=== PATIENT | female | born 1980 | race Caucasian/White ===

== ENCOUNTER 2017-07-10 13:49 | Emergency (ER) | payer MEDICAID ==
[2017-07-10] MEDS ORDERED: NS 1,000 ML IV ONE (14:41)
--- NOTE | 2017-07-10 14:41 | EDPHY ---
H & P Stated Complaint: hx migraines/can't take reg meds r/t 2 months Time Seen by Provider: 07/10/17 14:40 HPI/ROS: HPI: This is a 37-year-old female who presents with Chief Complaint: hx migraines/can't take reg meds r/t 2 months Location: Left eye Quality: Headache Duration: 2 days Signs and Symptoms: no fever, + nausea, no vomiting, + photophobia, + noise sensitivity, no neck stiffness, no ear pain, no tinnitus, no nasal congestion, no sinus pressure, no weakness, no radiation, no vaginal bleeding or discharge, no abdominal pain, no neck stiffness, no aura Timing: Acute, waxes and wane Severity: Moderate Context: Patient is currently 2 months and on Saturday had ultrasound with her OBGYN that was normal per patient. Presents with complaints of migraine headache primarily behind her left eye, nonradiating in nature, moderate intensity that started yesterday. She took Tylenol p.m. yesterday evening and she was able to sleep for couple hours but woke up with headache again. She has had take Imitrex in the past for her migraines but does not want to use due to her . She has had a poor appetite today. Denies any vaginal bleeding/discharge or abdominal pain. She reports that she is drinking plenty of fluids and does not believe that she is dehydrated. Diagnosed with migraines at age 13. Patient reports that her symptoms are typical of her other migraine. Modifying Factors: Tylenol p.m. with transient relief Comment: ROS: see HPI Constitutional: No fever, no chills, no weight loss Eyes: No blurred vision Respiratory: No shortness of breath, no cough Cardiovascular: No chest pain, no palpitations Gastrointestinal: No nausea, no vomiting, no diarrhea, no hematemesis, no blood in stool Genitourinary: No dysuria, no blood in urine Extremities: No myalgias, no edema Neurologic: No weakness, no numbness Skin: No rashes, no petechiae Hematologic: No bruising, no bleeding MEDICAL/SURGICAL/SOCIAL HISTORY: Medical history: Migraine headache. Does not take any regular medications. Surgical history: Denies Social history: Employed. CONSTITUTIONAL: Extremely well-appearing adult white female, awake and alert, no obvious distress HEENT: Atraumatic and normocephalic, PERRL, EOMI. Tympanic membranes clear. Oropharynx clear, no exudate and moist pink mucosa. Airway patent. No lymphadenopathy. No meningismus. Cardiovascular: Normal S1/S2, regular rate, regular rhythm, without murmur rub or gallop. PULMONARY/CHEST: Symmetrical and nontender. Clear to auscultation bilaterally. Good air movement. No accessory muscle usage. ABDOMEN: Soft, nondistended, nontender, no rebound, no guarding, no peritoneal signs, no masses or organomegaly. No CVAT. EXTREMITIES: 2/2 pulses, strength 5/5, no deformities, no clubbing, no cyanosis or edema. NEUROLOGICAL: no focal neuro deficits. GCS 15. Cranial nerves 2-12 grossly intact. Speech clear. SKIN: Warm and dry, no erythema. no rash. Good capillary refill. Source: Patient Exam Limitations: No limitations - Personal History LMP (Females 10-55): Current Tetanus/Diphtheria Vaccine: Yes - Medical/Surgical History Hx Asthma: No Hx Chronic Respiratory Disease: No Hx Diabetes: No Hx Cardiac Disease: No Hx Renal Disease: No Hx Cirrhosis: No Hx Alcoholism: No Hx HIV/AIDS: No Hx Splenectomy or Spleen Trauma: No Other PMH: migraines - Social History Smoking Status: Never smoked Constitutional: Initial Vital Signs Temperature (C) 36.8 C 07/10/17 14:12 Heart Rate 78 07/10/17 14:12 Respiratory Rate 16 07/10/17 14:12 Blood Pressure 124/77 H 07/10/17 14:12 O2 Sat (%) 96 07/10/17 14:12 O2 Delivery Mode Room Air O2 (L/minute) 2 Allergies/Adverse Reactions: No Known Allergies Allergy (Unverified 07/10/17 14:11) Home Medications: Medication Instructions Recorded Metoclopramide [Reglan 5 mg (*)] 5 mg PO Q6 PRN #12 tab 07/10/17 diphenhydrAMINE [Benadryl 25 MG 25 mg PO Q6 PRN #12 tab 07/10/17 (*)] Medical Decision Making ED Course/Re-evaluation: Patient given 1 L normal saline, placed on oxygen 2 L nasal cannula, p.o. Tylenol a 1000 mg, IV Reglan, IV Benadryl No neurological deficits No signs of otitis media/sinusitis/meningitis/hyperemesis gravidarum/miscarriage Reassessed patient: She reports moderate relief of symptoms. Asking to be disconnected from IV fluids in order to urinate. This patient was seen under the supervision of my primary supervising physician. I evaluated care for this patient independently. Differential Diagnosis: Headache including but not limited to subarachnoid hemorrhage, migraine headache , tension headache and infectious causes such as meningitis, pharyngitis and sinusitis. - Data Points Medications Given: Discontinued Medications Acetaminophen (Tylenol) 1,000 mg PO EDNOW ONE Stop: 07/10/17 14:43 Last Admin: 07/10/17 15:29 Dose: 1,000 mg Diphenhydramine HCl (Benadryl Injection) 25 mg IVP EDNOW ONE Stop: 07/10/17 14:44 Last Admin: 07/10/17 15:16 Dose: 25 mg Sodium Chloride (Ns) 1,000 mls @ 0 mls/hr IV EDNOW ONE; Wide Open PRN Reason: Protocol Stop: 07/10/17 14:42 Last Admin: 07/10/17 15:15 Dose: 1,000 mls Metoclopramide HCl (Reglan Injection) 10 mg IVP EDNOW ONE Stop: 07/10/17 14:43 Last Admin: 07/10/17 15:16 Dose: 10 mg Departure - Departure Disposition: Home, Routine, Self-Care Clinical Impression: First trimester Migraine Qualifiers: Migraine type: without aura Status migrainosus presence: without status migrainosus Intractability: not intractable Qualified Code(s): G43.009 - Migraine without aura, not intractable, without status migrainosus Condition: Good Instructions: (ED), Migraine Headache (ED) Additional Instructions: Consume a minimum of 8-10 glasses of water or electrolyte fluid replacement drinks that include Gatorade, Powerade, Pedialyte. Eat a bland diet for the next 48 hours and then slowly advance as tolerated. Take Reglan and Benadryl as needed for migraine headache that is not resolved with a 1000 mg of Tylenol. Follow-up with PCP/OBGYN regarding migraine headaches. Referrals: PCP Not In,Dictionary [Medical Doctor] - As per Instructions Prescriptions: diphenhydrAMINE [Benadryl 25 MG (*)] 25 mg PO Q6 PRN #12 tab PRN Reason: Nausea/Vomiting, Use 1st Metoclopramide [Reglan 5 mg (*)] 5 mg PO Q6 PRN #12 tab PRN Reason: Headache
[2017-07-10] MEDS ORDERED: ACETAMINOPHEN 500 MG TAB PO ONE (14:42)
[2017-07-10] MEDS ORDERED: METOCLOPRAMIDE 10 MG/2 ML VIAL IVP ONE (14:42)
[2017-07-10 17:24] VITALS: RESP 18
[2017-07-10 17:40] VITALS: BP 117/92; PULSE 90; TEMP 98.1; O2SAT 96
== END 2017-07-10 17:42 | disposition home or self-care (01) ==
PROC: 3E0337Z Introduction of Electrolytic and Water Balance Substance into Peripheral Vein, Percutaneous Approach (ICD-10-PCS; principal; 2017-07-10)
DX: O99.351 Diseases of the nervous system complicating pregnancy, first trimester (principal); G43.009 Migraine without aura, not intractable, without status migrainosus; E86.9 Volume depletion, unspecified; Z3A.01 Less than 8 weeks gestation of pregnancy
CPT/HCPCS: 96374; J1200; J2765

== ENCOUNTER 2017-07-30 16:39 | Emergency (ER) | payer MEDICAID ==
[2017-07-30 16:48] VITALS: TEMP 98.2
[2017-07-30 18:30] VITALS: RESP 18; O2SAT 96
--- NOTE | 2017-07-30 18:33 | EDPHY ---
H & P Time Seen by Provider: 07/30/17 18:20 HPI/ROS: Chief complaint. Fall, HPI. 29-year-old female presents emergency department after slipping on the snow this morning at about 9:30 a.m.. She slipped and landed on her bottom. She is 10 weeks . She has some discomfort in her back but no radiation to her legs or bowel or bladder symptoms. No leg weakness. She now then has low abdominal cramping that began this afternoon. No vaginal bleeding. Did not strike her head or lose consciousness. No neck pain. He ROS Constitutional. no fever/chills, no weakness Eyes. no problems with vision ENT. no sore throat, no nasal drainage Cardiovascular. no chest pain Respiratory. no shortness of breath, no cough Abdominal. Low abdominal cramping . no problems urinating MS. Mid back pain Skin. no rash Lymph. no swollen glands Neuro. no headache, no dizziness, no difficulty walking or with speech Past Medical/Surgical History: Migraines Social History: Single, nonsmoker, no alcohol Smoking Status: Never smoked Physical Exam: General Appearance: Alert well-developed female mild distress vital signs show initial heart rate 135 and blood pressure 133/110 Eyes: Pupils equal and round no pallor or injection. ENT, Mouth: Mucous membranes are moist. Respiratory: There are no retractions, lungs are clear to auscultation. Cardiovascular: Regular rate and rhythm. Gastrointestinal: Abdomen is soft and mildly tender in the suprapubic area., no masses, bowel sounds normal. Neurological: Awake and alert, sensory and motor exams grossly normal. Skin: Warm and dry, no rashes. Musculoskeletal: Neck is supple nontender. Tenderness in the lower thoracic area without evidence of surface trauma Extremities symmetrical, full range of motion. Psychiatric: Patient is oriented X 3, there is no agitation. Constitutional: Initial Vital Signs Temperature (C) 36.8 C 07/30/17 16:46 Heart Rate 135 H 07/30/17 16:46 Respiratory Rate 24 H 07/30/17 16:46 Blood Pressure 133/110 H 07/30/17 16:46 O2 Sat (%) 98 07/30/17 16:46 O2 Delivery Mode Room Air Allergies/Adverse Reactions: No Known Allergies Allergy (Unverified 07/30/17 16:45) Home Medications: Medication Instructions Recorded Hydroxyzine HCl 07/30/17 Imitrex 07/30/17 Medical Decision Making - Diagnostics Imaging Results: Imaging Impressions Obstetrics Ultrasound 07/30/17 18:43 Impression: 1. Viable intrauterine . Estimated sonographic gestational age: 9 weeks 5 days. 2. Small perigestational hemorrhage. Consider short-term ultrasound follow-up if of clinical concern. Dr. Thomson discussed these findings by telephone with MARY Pineda JEFFRY on 2017 at 1959 hours. Pelvic ultrasound shows a viable IUP. 9 weeks 5 days. Small subchorionic hemorrhage. Procedures: Tylenol in the ED ED Course/Re-evaluation: I consulted and discussed the care with Dr. Jerry. She recommended follow up and that we check a type and Rh and give RhoGAM if the patient is Rh negative. I discussed this with the patient including treatment plan and criteria for return and importance of follow-up and further evaluation. She expresses understanding and agreement Differential Diagnosis: I have considered spine fracture however it is a relatively minor fall and I do not want to radiate patient's low back. She is neurologically intact. She also has abdominal pelvic cramping but no vaginal bleeding. There is mild and slight subchorionic hemorrhage. - Data Points Laboratory Results: 07/30/17 19:00 Urine Color YELLOW Urine Appearance HAZY Urine pH 6.0 (5.0-7.5) Ur Specific [place] 1.011 (1.002-1.030) Urine Protein NEGATIVE (NEGATIVE) Urine Ketones NEGATIVE (NEGATIVE) Urine Blood NEGATIVE (NEGATIVE) Urine Nitrate NEGATIVE (NEGATIVE) Urine Bilirubin NEGATIVE (NEGATIVE) Urine Urobilinogen NEGATIVE EU EU (0.2-1.0) Ur Leukocyte Esterase 3+ H (NEGATIVE) Urine RBC 3-5 /hpf H /hpf (0-3) Urine WBC 10-15 /hpf H /hpf (0-3) Ur Epithelial Cells TRACE /lpf /lpf (NONE-1+) Urine Bacteria 1+ /hpf H /hpf (NONE SEEN) Urine Mucus TRACE /lpf /lpf (NONE-1+) Urine Glucose NEGATIVE (NEGATIVE) Medications Given: Discontinued Medications Acetaminophen (Tylenol) 1,000 mg PO EDNOW ONE Stop: 07/30/17 18:44 Last Admin: 07/30/17 18:50 Dose: 1,000 mg Departure - Departure Disposition: Home, Routine, Self-Care Clinical Impression: Back pain Qualifiers: Back pain location: low back pain Chronicity: acute Back pain laterality: midline Sciatica presence: without sciatica Qualified Code(s): M54.5 - Low back pain Subchorionic hemorrhage in first trimester Qualifiers: Fetus number: single or unspecified fetus Qualified Code(s): O41.8X10 - Other specified disorders of amniotic fluid and membranes, first trimester, not applicable or unspecified Condition: Good Instructions: Back Pain (ED) Additional Instructions: Ice to sore area of back next 24-48 hours. Tylenol 650 mg every 6 hr for discomfort. Activity as tolerated. Return for worsening abdominal pain or vaginal bleeding. Recheck by your regular physician in the next 2 days. Easy activity tomorrow. I will give you a note For the day Off. Call us back to find out your blood type and Rh. If you are Rh negative you need to return for RhoGAM treatment. [phone] Referrals: NONE *PRIMARY CARE P,. [Primary Care Provider] - As per Instructions [facility] [Outside] - 1-2 days without fail Stand Alone Forms: Work Excuse
[2017-07-30] MEDS ORDERED: ACETAMINOPHEN 500 MG TAB PO ONE (18:43)
[2017-07-30 22:06] VITALS: BP 148/95; PULSE 102
== END 2017-07-30 22:06 | disposition home or self-care (01) ==
DX: O9A.211 Injury, poisoning and certain other consequences of external causes complicating pregnancy, first trimester (principal); S39.92XA Unspecified injury of lower back, initial encounter; O36.8990 Maternal care for other specified fetal problems, unspecified trimester, not applicable or unspecified; Z3A.10 10 weeks gestation of pregnancy; W00.0XXA Fall on same level due to ice and snow, initial encounter

== ENCOUNTER → 2017-08-19 | Outpatient (CLI) | payer MEDICAID | LOC: FIMAGING 09:19 | PROVIDERS: ATTEND Family Medicine | DX: O09.521 Supervision of elderly multigravida, first trimester (principal); O09.71 Supervision of high risk pregnancy due to social problems, first trimester; Z3A.12 12 weeks gestation of pregnancy ==

== ENCOUNTER 2017-09-17 19:19 | Emergency (ER) | payer MEDICAID ==
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
[2017-09-17 22:20] VITALS: BP 124/96
== END 2017-09-17 22:20 | disposition home or self-care (01) ==
DX: O00.01 Abdominal pregnancy with intrauterine pregnancy (principal); F17.200 Nicotine dependence, unspecified, uncomplicated; Z3A.17 17 weeks gestation of pregnancy

== ENCOUNTER → 2017-10-07 | Outpatient (CLI) | payer MEDICAID | LOC: FIMAGING 12:06 | PROVIDERS: ATTEND Family Medicine | DX: O09.522 Supervision of elderly multigravida, second trimester (principal); F41.1 Generalized anxiety disorder; R03.0 Elevated blood-pressure reading, without diagnosis of hypertension; Z3A.19 19 weeks gestation of pregnancy; Z82.79 Family history of other congenital malformations, deformations and chromosomal abnormalities ==

== ENCOUNTER 2017-10-16 20:54 | Observation (INO) | payer MEDICAID ==
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
[2017-10-16 22:15] VITALS: BP 121/80
[2017-10-16] MEDS ORDERED: TERBUTALINE SULFATE 1 MG/ML VIAL SC PRN (22:34)
[2017-10-16] MEDS ORDERED: LR 500 ML IV ONE (23:00)
[2017-10-16] MEDS ORDERED: ACETAMINOPHEN 500 MG TAB PO ONE (23:00)
[2017-10-16] MEDS ORDERED: CALCIUM CARBONATE 500 MG CHEWABLE TAB PO PRN (23:05)
== END 2017-10-17 00:45 | disposition home or self-care (01) ==
LOC: FLD 22:17
PROVIDERS: ADMIT Obstetrics & Gynecology; ATTEND Obstetrics & Gynecology
DX: O99.89 Other specified diseases and conditions complicating pregnancy, childbirth and the puerperium (principal); M54.5 Low back pain
CPT/HCPCS: G0378

== ENCOUNTER → 2017-11-05 | Outpatient (CLI) | payer MEDICAID | LOC: FIMAGING 14:20 | PROVIDERS: ATTEND Family Medicine | DX: O09.522 Supervision of elderly multigravida, second trimester (principal); O99.342 Other mental disorders complicating pregnancy, second trimester; R03.0 Elevated blood-pressure reading, without diagnosis of hypertension; F43.10 Post-traumatic stress disorder, unspecified; Z3A.23 23 weeks gestation of pregnancy; Z82.79 Family history of other congenital malformations, deformations and chromosomal abnormalities ==

== ENCOUNTER 2017-11-15 19:36 | Observation (INO) | payer MEDICAID ==
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
== END 2017-11-15 22:37 | disposition home or self-care (01) ==
LOC: FLD 19:36
PROVIDERS: ADMIT Obstetrics & Gynecology; ATTEND Obstetrics & Gynecology
DX: O99.89 Other specified diseases and conditions complicating pregnancy, childbirth and the puerperium (principal); O09.522 Supervision of elderly multigravida, second trimester; Z3A.25 25 weeks gestation of pregnancy
CPT/HCPCS: G0378

== ENCOUNTER → 2017-12-02 | Outpatient (CLI) | payer MEDICAID | LOC: FIMAGING 12:46 | PROVIDERS: ATTEND Family Medicine | DX: O09.522 Supervision of elderly multigravida, second trimester (principal); O10.012 Pre-existing essential hypertension complicating pregnancy, second trimester; Z3A.27 27 weeks gestation of pregnancy; Z82.79 Family history of other congenital malformations, deformations and chromosomal abnormalities ==

== ENCOUNTER 2017-12-09 13:11 | Observation (INO) | payer MEDICAID ==
[2017-12-09 13:48] LABS: PLATELET COUNT 217 10^3/uL (150-400)
[2017-12-09] MEDS ORDERED: HYDROCODONE/APAP 5/325 TAB PO PRN (15:32)
--- NOTE | 2017-12-09 17:28 | OBPROG ---
Labor Progress Note Assessment/Plan: Assessment: IUP at 28+ wks back pain - improved after eating and 2 Yellow Jacket migraine - improved after eating and 2 Yellow Jacket Plan: Encourage increased fluids for third trimester. Cont to f/u with appts with Norma PT for migraine mgmt, and with neurology. Appt with Dr Dillard next week. D/C home 12/09/17 17:16 Subjective/Intrapartum Course: 12/09/17 17:18 -- OUTPATIENT VISIT Pt had acute onset of mid back pain after getting onto bus this afternoon intense enough that she had trouble taking normal breaths. Also felt migraine about to start which was worsening here on Labor and Delivery. Pt denied ctxns , bleeding or LOF. reports GFM. Has been urinating fine. Denies nausea and slick reg diet here today. Pt had full evaluation here on LnD and rec'd IV fluids and 2 Yellow Jacket and has had significant reduction in back pain and no further migraine. Initial B/P was 140s/90s in pain but then 120s/70s Labs normal and no sign of preeclampsia.... (has been told she might have B/P issues). Urine negative. Monitoring reassuring for heart tones and no signs of labor. Objective: 12/09/17 13:00 12/09/17 13:00 Uric Acid 3.5 mg/dL (2.5-6.8) 12/09/17 13:00 Total Bilirubin 0.4 mg/dL (0.1-1.4) 12/09/17 13:00 Conjugated Bilirubin 0.3 mg/dL (0.0-0.5) 12/09/17 13:00 Unconjugated Bilirubin 0.1 mg/dL (0.0-1.1) 12/09/17 13:00 AST 17 IU/L (14-46) 12/09/17 13:00 ALT 27 IU/L (9-52) 12/09/17 13:00 Lactate Dehydrogenase 447 IU/L (313-618) 12/09/17 13:00 - Contraction Pattern Assessment Current Contraction Pattern: Other (Specify) (none) - FHR Assessment Malloy FHR (bpm): 130 FHR Pattern Variability: Moderate (10x10 elevations in FHR, reassuring) Oxytocin Orders Assessment - Pre-Induction/Augmentation Assessment Gestational Age: 28 week(s) and 3 day(s) ICD10 Worksheet Patient Problems: Problems Problem Status Onset Migraine Acute Back pain Acute Acute
== END 2017-12-09 18:00 | disposition home or self-care (01) ==
LOC: FLD 13:11
PROVIDERS: ADMIT Obstetrics & Gynecology; ATTEND Obstetrics & Gynecology
DX: M54.9 Dorsalgia, unspecified (principal); R06.02 Shortness of breath; G43.909 Migraine, unspecified, not intractable, without status migrainosus; Z3A.28 28 weeks gestation of pregnancy
CPT/HCPCS: 59025; G0378

== ENCOUNTER 2018-01-11 04:15 | Observation (INO) | payer MEDICAID | END 2018-01-11 05:45 | disposition home or self-care (01) | LOC: FLD 04:15 | PROVIDERS: ADMIT Obstetrics & Gynecology; ATTEND Obstetrics & Gynecology | DX: O09.523 Supervision of elderly multigravida, third trimester (principal); Z3A.33 33 weeks gestation of pregnancy ==

== ENCOUNTER 2018-02-09 20:49 | Observation (INO) | payer MEDICAID ==
--- NOTE | 2018-02-09 23:29 | GPROG ---
DATE OF SERVICE: 02/09/2018 The patient is a 38-year-old, 4, para 3-0-0-3, who is at 37 and 2/7 weeks' gestation, who has complained of having contractions 8-10 minutes apart, which are occasionally uncomfortable. She andre d that she is receiving care at [facility] and she said she was told to come in when sh e was having contractions 8 minutes apart. She has been seen several times in this . Her c ervix has unchanged since last visit. She is 2 cm dilated, 50% effaced, and -2 station. statu s was reassuring with a reactive nonstress test with positive accelerations and no decelerations and category 1 tracing. The patient was discharged to home with labor precautions and kick counts. /[id number]/MODL
== END 2018-02-09 22:52 | disposition home or self-care (01) ==
LOC: FLD 20:49
PROVIDERS: ADMIT Obstetrics & Gynecology; ATTEND Obstetrics & Gynecology
DX: O47.1 False labor at or after 37 completed weeks of gestation (principal)
CPT/HCPCS: 59025; G0378

== ENCOUNTER 2018-02-19 19:49 | Emergency (ER) | payer MEDICAID ==
--- NOTE | 2018-02-19 21:38 | EDPHY ---
H & P Stated Complaint: HIGH BP, CASTRO, ANKLE SWELLING Time Seen by Provider: 02/19/18 21:30 HPI/ROS: CHIEF COMPLAINT: Hypertension, swollen legs HISTORY OF PRESENT ILLNESS: The patient is a 38-year-old female who delivered a baby 2 days ago. She has had elevated blood pressure and swollen ankles ever since. She has been trying to keep her legs elevated. No abdominal pain. No headache. No nausea vomiting. Is a normal healthy vaginal delivery, not premature. Severity: Mild Modifying factors: None REVIEW OF SYSTEMS: Constitutional: denies: chills, fever, recent illness, recent injury EENTM: denies: blurred vision, double vision, nose congestion Respiratory: denies: cough, shortness of breath Cardiac: denies: chest pain, irregular heart rate, lightheadedness, palpitations Gastrointestinal/Abdominal: denies: abdominal pain, diarrhea, nausea, vomiting, blood streaked stools Genitourinary: denies: dysuria, frequency, hematuria, pain Musculoskeletal: denies: joint pain, muscle pain Skin: denies: lesions, rash, jaundice, bruising Neurological: Occasional headaches but not now denies: numbness, paresthesia, tingling, dizziness, weakness Hematologic/Lymphatic: denies: blood clots, easy bleeding, easy bruising Immunologic/allergic: denies: HIV/AIDS, transplant 10 systems reviewed and negative except as noted EXAM: GENERAL: Well-appearing, well-nourished and in no acute distress. HEAD: Atraumatic, normocephalic. EYES: Pupils equal round and reactive to light, extraocular movements intact, sclera anicteric, conjunctiva are normal. ENT: TMs normal, nares patent, oropharynx clear without exudates. Moist mucous membranes. NECK: Normal range of motion, supple without lymphadenopathy or JVD. LUNGS: Breath sounds clear to auscultation bilaterally and equal. No wheezes rales or rhonchi. HEART: Regular rate and rhythm without murmurs, rubs or gallops. ABDOMEN: Soft, nontender, normoactive bowel sounds. No guarding, no rebound. No masses appreciated. BACK: No CVA tenderness, no spinal tenderness, step-offs or deformities EXTREMITIES: Normal range of motion, no pitting or edema. No clubbing or cyanosis. NEUROLOGICAL: Cranial nerves II through XII grossly intact. Normal speech, normal gait. 5/5 strength, normal movement in all extremities, normal sensation , normal reflexes PSYCH: Normal mood, normal affect. SKIN: Warm, dry, normal turgor, no visible rashes or lesions. Source: Patient Exam Limitations: No limitations - Personal History Current Tetanus/Diphtheria Vaccine: Yes - Medical/Surgical History Hx Asthma: No Hx Chronic Respiratory Disease: No Hx Diabetes: No Hx Cardiac Disease: No Hx Renal Disease: No Hx Cirrhosis: No Hx Alcoholism: No Hx HIV/AIDS: No Hx Splenectomy or Spleen Trauma: No Other PMH: migraines, PTSD-pt is currently seeing a therapist ([facility]) on a weekly basis, degenerative disc disease - Social History Smoking Status: Current every day smoker Alcohol Use: Sober Drug Use: None Constitutional: Initial Vital Signs Temperature (C) 36.7 C 02/19/18 19:51 Heart Rate 87 02/19/18 19:51 Respiratory Rate 18 02/19/18 19:51 Blood Pressure 160/115 H 02/19/18 19:51 O2 Sat (%) 98 02/19/18 19:51 O2 Delivery Mode Room Air Allergies/Adverse Reactions: No Known Allergies Allergy (Verified 01/19/18 22:18) Home Medications: Medication Instructions Recorded Hydroxyzine HCl 1 tab PO QID PRN 11/15/17 Imitrex 50 mg PO DAILY 01/20/18 Medical Decision Making ED Course/Re-evaluation: I discussed the lab work and patient presentation with Dr. Jerry would like to evaluate the patient in labor and delivery. We will transfer her there. Patient reports she did have hypertension during her initially but the medication gave her migraines so they let her stop taking it and she did not have any further problems for the last couple of months. She states that they checked her for preeclampsia but it was always negative. She does not have protein in her urine here but her blood pressure is around 150/105. She states that when she was discharged yesterday it was 140/90 and improved during the day today but then at home elevated to 170 systolic that is when she was told to come here. Differential Diagnosis: Partial list of the Differential diagnosis considered include but were not limited to; the anemia, hypertension, anxiety, preeclampsia and although unlikely based on the history and physical exam, I also considered migraine, hemorrhage. - Data Points Laboratory Results: Laboratory Results 02/19/18 20:16 02/19/18 20:16 02/19/18 20:16 Uric Acid 5.3 mg/dL mg/dL (2.5-6.8) Total Bilirubin Cancelled Conjugated Bilirubin Cancelled Unconjugated Bilirubin Cancelled Icterus Index Cancelled AST Cancelled ALT Cancelled Alkaline Phosphatase Cancelled Total Protein Cancelled Albumin Cancelled Specimen Hemolysis Cancelled Departure - Departure Disposition: Home, Routine, Self-Care Clinical Impression: Hypertension Qualifiers: Hypertension type: unspecified Qualified Code(s): I10 - Essential (primary) hypertension Condition: Fair Instructions: Hypertension (ED) Additional Instructions: Go directly to the L and D floor. Dr. Jerry is aware your coming. Referrals: Shobha Dillard MD [Primary Care Provider] - As per Instructions
[2018-02-19 21:53] VITALS: BP 151/112
== END 2018-02-19 21:53 | disposition home or self-care (01) ==
DX: O14.95 Unspecified pre-eclampsia, complicating the puerperium (principal)

== ENCOUNTER 2018-02-19 21:54 | Observation (INO) | payer MEDICAID ==
[2018-02-19] MEDS ORDERED: IBUPROFEN 600 MG TAB PO ONE (22:35)
[2018-02-19] MEDS: IBUPROFEN 600 MG TAB PO SCH (22:44)
[2018-02-19] MEDS ORDERED: MAGNESIUM SULF 4 GM/WATER 100 ML IV ONE (23:39)
[2018-02-19] MEDS ORDERED: CALCIUM GLUC 10% 1 GM/10 ML VIAL IVP PRN (23:39)
[2018-02-19] MEDS ORDERED: MAGNESIUM SULF 4 GM/WATER 100 ML BAG IV ONE (23:45)
[2018-02-19] MEDS ORDERED: MAGNESIUM SULF 20 GM/500 ML BAG IV ONE (23:45)
[2018-02-20] MEDS: oxyCODONE IR 5 MG TAB PO PRN ×6 (00:02→23:01)
[2018-02-20] MEDS: ACETAMINOPHEN 325 MG TAB PO SCH ×4 (00:15→18:40)
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
[2018-02-20] MEDS: Mag Sulf 500 ML IV SCH ×2 (01:06→12:06)
[2018-02-20] MEDS: LR 1,000 ML IV SCH ×2 (01:06→14:33)
[2018-02-20] MEDS: IBUPROFEN 600 MG TAB PO SCH ×3 (04:43→19:32)
[2018-02-20 06:43] LABS: PLATELET COUNT 210 10^3/uL (150-400)
[2018-02-20] MEDS: SUMAtriptan 50 MG TAB PO PRN ×3 (08:31→17:23)
--- NOTE | 2018-02-20 09:53 | OBPP ---
Progress Note Assessment/Plan: Assessment: 38 y/o PPD #3 s/p augmentation of labor secondary to Gestational HTN and POD #3 s/p post tubal ligation and umbilical hernia repair admitted for HTN and severe CASTRO on MgSo4 Plan: Clinically I am suspicious for Gestational HTN and worsening migraines. Her normal pre-eclampsia labs and negative proteinuria point away from pre- eclampsia as a diagnosis. However, I do strongly feel that MgSo4 is indicated now for 24 hours to prevent seizure now with unsure diagnosis. We just gave her another dose of Imitrex 50 mg and will monitor for improvement of her CASTRO and BP. May need to add Labetalol now and observe. 02/20/18 09:57 Subjective/ Course: 02/20/18 09:44 Delia is complaining of a severe left sided CASTRO this am. She says the pain radiates from the left side of her neck and into the front of her head. She tried Imitrex 50 mg and it hasn't really helped. She reports her usual dose of Imitrex is 100 mg at a time. She has severe photosensitivity and blurred vision with this CASTRO. She denies nausea/vomiting and tolerated reg diet for breakfast. She is very upset about these terrible CASTRO and is concerned about her HTN as well. She says she had an episode of HTN in labor and was given IV Labetalol and then augmented with pitocin for delivery. She says she continued to have elevated BP post but they d/c her home on PPD/ POD #1 without meds. She also is reporting significant tenderness in her incision site requiring Oxy IR and Ibuprofen. She is ambulating and voiding without difficulty, has min lochia and is tolerating the MgSo4 well. Objective: 02/20/18 06:35 02/20/18 06:35 Uric Acid 5.6 mg/dL (2.5-6.8) 02/20/18 06:35 Total Bilirubin 0.3 mg/dL (0.1-1.4) 02/20/18 06:35 Conjugated Bilirubin 0.0 mg/dL (0.0-0.5) 02/20/18 06:35 Unconjugated Bilirubin 0.3 mg/dL (0.0-1.1) 02/20/18 06:35 AST 28 IU/L (14-46) 02/20/18 06:35 ALT 32 IU/L (9-52) 02/20/18 06:35 Lactate Dehydrogenase 425 IU/L (313-618) 02/20/18 06:35 Temp Pulse Resp BP Pulse Ox 36.5 C 88 16 142/94 H 96 02/19/18 22:03 02/20/18 08:31 02/20/18 08:31 02/20/18 08:31 02/20/18 08:31 BP 134/81, 148/85, 140/81, 162/89, 142/94, 138/88 Uterine Position/Fundal Height: Umbilicus -2 Uterine Tone: Firm Physical Exam - Physical Exam General Appearance: alert, no apparent distress Neck: non-tender, full range of motion, supple Respiratory: chest non-tender, lungs clear, normal breath sounds Cardiac/Chest: regular rate, rhythm Abdomen: normal bowel sounds, incision (c/d/i ) Extremities: swelling (tr), Miguel's sign (neg)
[2018-02-20] MEDS: LABETALOL HCL 100 MG TAB PO SCH ×2 (10:24→21:35)
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
[2018-02-20] MEDS ORDERED: SUMAtriptan 50 MG TAB PO ONE ×2 (17:30→21:45)
[2018-02-20] MEDS ORDERED: SUMAtriptan 25 MG TAB PO ONE (21:45)
[2018-02-21] MEDS: IBUPROFEN 600 MG TAB PO SCH ×2 (01:01→07:54)
[2018-02-21] MEDS: oxyCODONE IR 5 MG TAB PO PRN ×2 (03:10→07:54)
[2018-02-21] MEDS: ACETAMINOPHEN 325 MG TAB PO SCH ×2 (03:20→07:53)
[2018-02-21] MEDS ORDERED: SUMAtriptan 25 MG TAB PO PRN (07:44)
[2018-02-21] MEDS: LABETALOL HCL 100 MG TAB PO SCH (09:24)
[2018-02-21 09:25] VITALS: BP 140/74
--- NOTE | 2018-02-21 10:12 | OBPP ---
Progress Note Assessment/Plan: Assessment: 38 yo PPD#5 s/p with pp preeclampsia, received Magsulfate x 24 hours, doing well off the Magsulfate now for almost 12 hours. BPs reasonable on labetolol. Plan: DC home. See dc summary. FU in 3-4 d with BP check FU with neurology in the next few weeks. 02/21/18 10:13 Subjective/ Course: 02/20/18 09:44 Delia is complaining of a severe left sided CASTRO this am. She says the pain radiates from the left side of her neck and into the front of her head. She tried Imitrex 50 mg and it hasn't really helped. She reports her usual dose of Imitrex is 100 mg at a time. She has severe photosensitivity and blurred vision with this CASTRO. She denies nausea/vomiting and tolerated reg diet for breakfast. She is very upset about these terrible CASTRO and is concerned about her HTN as well. She says she had an episode of HTN in labor and was given IV Labetalol and then augmented with pitocin for delivery. She says she continued to have elevated BP post but they d/c her home on PPD/ POD #1 without meds. She also is reporting significant tenderness in her incision site requiring Oxy IR and Ibuprofen. She is ambulating and voiding without difficulty, has min lochia and is tolerating the MgSo4 well. 02/21/18 10:16 Pt is finally CASTRO free this morning. Is doing well. Denies visual changes, epigastric or RUQ pain. Ankle edema is decreased. Voiding, ambulating without difficulty. Ye reg diet. Had BM last night. No chest pain. Has a neurologist here in [place]. Objective: 02/20/18 06:35 02/20/18 06:35 Uric Acid 5.6 mg/dL (2.5-6.8) 02/20/18 06:35 Total Bilirubin 0.3 mg/dL (0.1-1.4) 02/20/18 06:35 Conjugated Bilirubin 0.0 mg/dL (0.0-0.5) 02/20/18 06:35 Unconjugated Bilirubin 0.3 mg/dL (0.0-1.1) 02/20/18 06:35 AST 28 IU/L (14-46) 02/20/18 06:35 ALT 32 IU/L (9-52) 02/20/18 06:35 Lactate Dehydrogenase 425 IU/L (313-618) 02/20/18 06:35 Temp Pulse Resp BP Pulse Ox 36.7 C 64 18 140/74 H 97 02/21/18 08:00 02/21/18 09:24 02/21/18 08:00 02/21/18 09:24 02/21/18 09:15 gen - pleasant female, NAD CV - RRR chest - CTAB abd - umbilical incision healing well with dermabond in place, no erythema, fundus firm at u-3 ext - 1+ pitting edema of BLE, no calf tenderness Uterine Position/Fundal Height: Umbilicus -3 Uterine Tone: Firm
== END 2018-02-21 12:35 | disposition home or self-care (01) ==
LOC: FLD 21:54
PROVIDERS: ADMIT Obstetrics & Gynecology; ATTEND Obstetrics & Gynecology
DX: O14.95 Unspecified pre-eclampsia, complicating the puerperium (principal)
CPT/HCPCS: 99241; G0378; G0463; J0610; J3475